=== PATIENT | female | born 2000 | race Caucasian/White ===

== ENCOUNTER 2024-08-24 22:20 | Emergency (ER) | payer OTHER, SELFPAY ==
[2024-08-24 22:40] VITALS: BP 154/96; PULSE 85; RESP 18; TEMP 37.2; O2SAT 97; BMI 38.2
[2024-08-25 01:02] VITALS: BP 133/89; PULSE 72; RESP 18; O2SAT 98
[2024-08-25] MEDS: KETOROLAC 30 MG/ML VIAL 15 MG IV (01:03)
[2024-08-25] MEDS: SODIUM CHLORIDE 0.9% 1,000 ML 1000 ML IV (01:03)
[2024-08-25] MEDS: cefTRIAXone 2,000 MG in SODIUM CHLORIDE 0.9% 100 ML 200 MG IV (01:04)
[2024-08-25 01:07] LABS: Add Manual Diff / Slide Review NO; Hematocrit 36.4 % (36-46); Hemoglobin 13.0 g/dL (12.0-16.0); Lymphocytes Absolute Auto 4300 /uL (1100-4500); Mean Corpuscular HGB Conc 35.7 % (30-36); Mean Corpuscular Hemoglobin 29.0 PG (26-34); Mean Corpuscular Volume 81.2 fL (80-100); Platelet Count 433 X10^3/uL (150-400)
--- NOTE | 2024-08-25 01:13 | ED_ITS ---
HPI - General Adult General Chief complaint: Urogenital-Female Stated complaint: sever back pain,dizzy, pain while urinating Time Seen by Provider: 08/24/24 23:21 Source: patient Mode of arrival: Ambulatory History of Present Illness HPI narrative: 23-year-old woman with 3-4 days of dysuria frequency. Presumed she was developing a urinary tract infection, increase fluids symptoms have worsened and now is having left greater than right flank pain with low back pain and increasing body aches and fevers. Recently completed her last menstrual cycle, does not believe that she is , no unusual vaginal discharge. No significant abdominal pain, chest pain, palpitations, tachypnea, nausea, vomiting or diarrhea Related Data Previous Rx's ?Medication ?Instructions ?Recorded amoxicillin 875 mg-potassium 1 tab PO BID #28 tabs clavulanate 125 mg tablet Allergies Allergy/AdvReac Type Severity Reaction Status Date / Time No Known Drug Allergies Allergy Verified 08/25/24 00:33 Review of Systems Review of Systems Narrative: Pertinent positive and negative findings as per HPI Exam Initial Vital Signs Initial Vital Signs: Vital Signs Temperature 98.9 F 08/24/24 22:40 Pulse Rate 85 08/24/24 22:40 Respiratory Rate 18 08/24/24 22:40 Blood Pressure 154/96 H 08/24/24 22:40 Pulse Oximetry 97 08/24/24 22:40 Oxygen Delivery Method Room Air 08/24/24 22:40 General: Healthy appearing, in no acute distress. Able to give a complete and coherent history. Well-nourished well-developed HEENT: Moist mucous membranes, normal sclera with reactive pupils, Respiratory: Lungs are clear to auscultation, no wheezing no rales no rhonchi. Full and symmetrical air movement Cardiac: Regular rate and rhythm no murmurs no bruits Abdomen: Soft, no significant suprapubic tenderness. No rebound or guarding. Mild left flank to left lower lung shaw area of tenderness without any associated skin changes. Left greater than right. She does not have midline lumbar/thoracic pain. Skin: Warm and dry, no rashes Neurologic: Grossly neurologically intact with no obvious asymmetries or abnormalities Extremities: No trauma, well perfused Psych: Cooperative, appropriate insight and affect Course Orders Ordered: ED Orders 08/24/24 23:07 Urine Culture Stat Urine Microscopic Stat 08/25/24 00:38 Chlamydia Gonorrhea PCR -URINE Stat 08/25/24 00:58 Complete Blood Count AUTO DIFF Stat Comprehensive Metabolic Panel Stat Lactate (Lactic Acid) Stat Discontinued Medications Sodium Chloride (Normal Saline 0.9%) 1,000 mls @ 1,000 mls/hr IV BOLUS ONE Stop: 08/25/24 01:08 Last Admin: 08/25/24 01:03 Dose: 1,000 mls/hr Documented By: GABRIELA Ceftriaxone Sodium 2,000 mg/ (Sodium Chloride) 100 mls @ 200 mls/hr IV NOW ONE Stop: 08/25/24 00:10 Last Admin: 08/25/24 01:04 Dose: 200 mls/hr Documented By: GABRIELA Ketorolac Tromethamine (Ketorolac 30 Mg/Ml Vial) 15 mg IV NOW ONE Stop: 08/25/24 00:10 Last Admin: 08/25/24 01:03 Dose: 15 mg Documented By: GABRIELA Vital Signs Vital signs: Vital Signs - 8 hr 08/24/24 22:40 08/25/24 01:02 08/25/24 01:02 Temperature 98.9 F Pulse Rate 85 72 Respiratory Rate 18 18 Blood Pressure 154/96 H 133/89 Pulse Oximetry 97 98 Oxygen Delivery Method Room Air Room Air Medical Decision Making Lab Data 08/25/24 00:58 08/25/24 00:58 Labs: Lab Results 08/24/24 08/25/24 Range/Units 23:07 00:58 WBC 13.4 H (4.5-11.0) X10^3/uL RBC 4.48 (4.0-5.2) X10^6/uL Hgb 13.0 (12.0-16.0) g/dL Hct 36.4 (36-46) % MCV 81.2 (80-100) fL MCH 29.0 (26-34) PG MCHC 35.7 (30-36) % RDW 12.7 (11.6-14.8) % Plt Count 433 H (150-400) X10^3/uL Neut % (Auto) 59.0 (50-75) % Lymph % (Auto) 31.9 (25-40) % [place] % (Auto) 6.0 (3-14) % Eos % (Auto) 2.6 (2-4) % Baso % (Auto) 0.5 (0-2) % Neut # (Auto) 7900 H (2196-6064) /uL Lymph # (Auto) 4300 (3117-1662) /uL [place] # (Auto) 800 (0-900) /uL Eos # (Auto) 300 (0-450) /uL Baso # (Auto) 100 (0-100) /uL Urine RBC 1-5/hpf (0-5/HPF) Urine WBC 30-100/hpf H (0-5/HPF) Ur Squamous Epith Cells 10-30 /hpf H (0-5/HPF) Urine Bacteria Moderate (10-30) H (None) Urine Mucus 1+ H (Negative) Vol Urine Centrifuged 10ml (spun) Point of Care Testing Test Results Negative Urine Dip Bedside Urine Glucose Negative Bedside Urine Bilirubin - Negative Bedside Urine Ketone - Negative Urine Specific [place] 1.015 Bedside Urine Occult Blood + Bedside Urine pH 7.0 Bedside Urine Protein +/- 15 Bedside Urine Urobilinogen +/- 1mg Bedside Urine Nitrite - Negative Bedside Urine Leukocytes +/- 15 Esterase Point of care testing: Point of Care Testing Test Results Negative Urine Dip Bedside Urine Glucose Negative Bedside Urine Bilirubin - Negative Bedside Urine Ketone - Negative Urine Specific [place] 1.015 Bedside Urine Occult Blood + Bedside Urine pH 7.0 Bedside Urine Protein +/- 15 Bedside Urine Urobilinogen +/- 1mg Bedside Urine Nitrite - Negative Bedside Urine Leukocytes +/- 15 Esterase MDM Narrative Medical decision making narrative: 23-year-old woman with symptoms initially starting few days of dysuria and frequency increasing to fevers, flank pain left greater than right. Labs show mild leukocytosis Chemistries are reassuring with normal renal function, no significant liver abnormalities Lactate is not elevated Urine shows white cells squamous cells bacteria mucus Treatment includes 1 L of saline, Toradol IV oral Percocet x1 and 2 g of ceftriaxone Exam and blood work are most consistent with developing pyelonephritis left greater than right without evidence of sepsis. She is able to eat and drink and we will be safe for discharge home. There is no evidence of intra-abdominal significant mass or infection. I do not suspect epidural abscess or diskitis, patient is not . Gonorrhea and chlamydia are pending as part of a thorough workup and she will be contacted if either of these do returned positive. In the meantime she was started on ceftriaxone and we will have her complete a 14 day course of Augmentin along with anticipated course of recovery including the fact that she is likely going to have pain and fevers for 2-3 more days. Findings reviewed in detail, there was no indication for hospitalization, questions are answered and she is safe for discharge Discharge Plan Departure Patient Disposition: Home Clinical Impression: Pyelonephritis Urinary tract infection Qualifiers: Urinary tract infection type: acute cystitis Hematuria presence: with hematuria Qualified Code(s): N30.01 - Acute cystitis with hematuria Instructions: DI for Kidney Infection Activity Restrictions/Additional Instructions: Thank you for coming in today You do in fact have a kidney infection. Fortunately I am not seeing signs of complicated infection spread throughout your body such as sepsis. There was no evidence for appendicitis, you are 100% correct that you are not . Kidney infections can cause significant pain and fevers that continue to last for 2 or 3 days after appropriate treatment is started. In the emergency department you were given 2 g of ceftriaxone, an antibiotic can be very effective for kidney infections. I have given you a prescription for 2 weeks of Augmentin. Please do complete all of the antibiotics even once you start feeling better. Kidney infections can return if the infection is not completely eradicated. You likely are still going to have fevers, chills and flank pain for a couple of days but it should get better each day. Using 400 mg of ibuprofen (2 dmif-aoh-utukmtd pills) and 1 Tylenol every 6 hours can be very helpful in controlling pain. I have given you a couple of Percocet to have at home to use over the next 24-48 hours If you find that you are getting worse or develop any new symptoms, please feel free to return to the emergency department for further evaluation. Prescriptions: New amoxicillin-pot clavulanate 875-125 mg tablet 1 tab PO BID Qty: 28 0RF Stand Alone Forms: Patient Portal/API
[2024-08-25 01:19] LABS: Alanine Aminotransferase 23 IU/L (<35); Albumin 4.6 g/dL (3.5-5.0); Albumin Globulin Ratio 1.2 (1.0-2.8); Alkaline Phosphatase 131 U/L (38-126); Blood Urea Nitrogen 13 mg/dL (7-17); Calcium 9.9 mg/dL (8.4-10.2); Carbon Dioxide 24 mmol/L (22-32); Chloride 105 mmol/L (98-107); Estimated Glomerular Filt Rate > 60 mL/min (>60); Globulin 3.9 g/dL (1.7-4.1); Glucose 100 mg/dL (70-99); HEMOLYSIS < 15 (0-50); Lactate (Lactic Acid) 1.0 mmol/L (0.7-2.1); Potassium 3.8 mmol/L (3.4-5.1); Sodium 140 mmol/L (137-145); Total Protein 8.5 g/dL (6.3-8.2)
[2024-08-25] MEDS: OXYCODONE/ACETAMINOPHEN 5/325 TABLET 1 TAB PO (01:29)
[2024-08-25 01:30] VITALS: BP 135/89; PULSE 80; RESP 18; O2SAT 98
[2024-08-25] MEDS: OXYCODONE/APAP 5/325 PREPACK 1 BOTTLE MISC (01:51)
[2024-08-25 02:09] LABS: Urine N gonorrhoeae NOT DETECTED
[2024-08-25 02:12] LABS: Urine Chlamydia NOT DETECTED
== END 2024-08-25 01:53 | disposition home or self-care (01) ==
PROVIDERS: Emergency Provider Emergency Medicine
DX: N12 Tubulo-interstitial nephritis, not specified as acute or chronic (principal); N30.01 Acute cystitis with hematuria; M54.50 Low back pain, unspecified
CPT/HCPCS: 36415; 80053; 81003; 81015; 81025; 83605; 85025; 87086; 87491; 87591; 96365; 96375; 99284; J0696; J1885